=== PATIENT | female | born 1990 | race Caucasian/White ===

== ENCOUNTER 2018-02-23 21:49 | Emergency (ER) | payer MEDICAID ==
[~2018-02-23] VITALS: Ht 162.6 cm; Wt 110.8 kg
[~2018-02-23 21:49] MED LIST: PREN1TAB25 PO
[2018-02-23 21:57] VITALS: BP 131/79
== END 2018-02-23 23:51 | disposition home or self-care (01) ==
LOC: ED 23:45
DX: N61.0 Mastitis without abscess (principal)
CPT/HCPCS: 76642; 99284

== ENCOUNTER 2019-01-10 11:41 | Emergency (ER) | payer SELFPAY ==
[~2019-01-10] VITALS: Ht 162.6 cm; Wt 113.0 kg
[2019-01-10 11:50] VITALS: BP 115/73
[2019-01-10] MEDS ORDERED: DEXAMETHASONE 4 MG TABLET ONE (12:27)
[2019-01-10] MEDS ORDERED: DEXAMETHASONE 4 MG/ML, 1ML ONE (12:29)
[2019-01-10] MEDS ORDERED: DEXAMETHASONE 4 MG/ML, 1ML PO ONE (12:30)
== END 2019-01-10 12:36 | disposition home or self-care (01) ==
LOC: ED 12:30
DX: B34.9 Viral infection, unspecified (principal)
CPT/HCPCS: 71046; 99283; J1100

== ENCOUNTER 2019-04-29 18:04 | Emergency (ER) | payer SELFPAY ==
[~2019-04-29] VITALS: Ht 162.6 cm; Wt 117.6 kg
[2019-04-29 18:07] VITALS: BP 129/82
[2019-04-29 18:39] LABS: MICROSCOPIC AUTO
[2019-04-29 18:51] LABS: CULTURE INDICATED? YES
[2019-04-29] MEDS ORDERED: ACETAMINOPHEN 500 MG TABLET PO ONE (19:00)
--- NOTE | 2019-04-29 19:05 | NUR ---
REPORT OF PT FROM JHONY GOMEZ AND ASSUMING CARE OF PT AT THIS TIME.
[2019-04-29] MEDS ORDERED: ACETAMINOPHEN 500 MG TABLET ONE (19:13)
[2019-04-29] MEDS ORDERED: ONDANSETRON ODT 4 MG ONE (19:30)
--- NOTE | 2019-04-29 19:40 | NUR ---
PT RETURNS FROM IMAGING VIA [facility]. PT MEDICATED FOR PAIN PER MAR.
== END 2019-04-29 20:24 | disposition home or self-care (01) ==
LOC: ED 20:02
DX: S39.012A Strain of muscle, fascia and tendon of lower back, initial encounter (principal); M62.830 Muscle spasm of back; X58.XXXA Exposure to other specified factors, initial encounter; Y93.89 Activity, other specified; Y92.89 Other specified places as the place of occurrence of the external cause; Y99.8 Other external cause status
CPT/HCPCS: 72072; 72110; 81001; 87086; 99284